=== PATIENT | female | born 1935 | race Caucasian/White ===

== ENCOUNTER → 2018-11-23 | Outpatient (CLI) | payer OTHER | END | disposition home or self-care (01) | LOC: NUCLEAR 11:00 | DX: I73.9 Peripheral vascular disease, unspecified (principal); I87.323 Chronic venous hypertension (idiopathic) with inflammation of bilateral lower extremity; I87.2 Venous insufficiency (chronic) (peripheral) ==

== ENCOUNTER → 2018-11-24 | Outpatient (CLI) | payer OTHER | END | disposition home or self-care (01) | LOC: NUCLEAR 11:48 | DX: I87.2 Venous insufficiency (chronic) (peripheral) (principal) ==

== ENCOUNTER 2019-08-03 09:04 | Outpatient (CLI) | payer OTHER | END 2019-08-03 17:00 | disposition home or self-care (01) | LOC: TOM 09:04 | DX: I35.8 Other nonrheumatic aortic valve disorders (principal); I48.91 Unspecified atrial fibrillation; Z79.02 Long term (current) use of antithrombotics/antiplatelets; I11.9 Hypertensive heart disease without heart failure; K57.32 Diverticulitis of large intestine without perforation or abscess without bleeding ==

== ENCOUNTER 2019-08-06 19:31 | Inpatient (IN) | payer OTHER ==
[~2019-08-06] VITALS: Ht 157.5 cm; Wt 59.9 kg
[2019-08-06] MEDS ORDERED: LANOXIN125 MCG (20:23)
[2019-08-06] MEDS ORDERED: COUMADIN5 MG (20:23)
[2019-08-06] MEDS ORDERED: LASIX20 MG (20:24)
[2019-08-06] MEDS ORDERED: HYDRALAZINE HCL50 MG (20:24)
[2019-08-06] MEDS ORDERED: QVAR REDIHALE10.6 G1 (20:24)
--- NOTE | 2019-08-06 20:26 | NUR ---
SE RECIBE PTE ALERTA YA ORIENTADA X 3 ESFERAS. REFIERE DIFICULTAD RESPIRATORIA, LA MISMA INDICA VENIR [facility], EN COMPANIA DE [place]. SE PRESENTA A DR DOOLEY Y SE UBICA EN AREA DE OBSERVACION.
[2019-09-02] MEDS ORDERED: LASIX20 MG PO (11:59)
[2019-09-02] MEDS ORDERED: HYDRALAZINE HCL50 MG PO (11:59)
[2019-09-02] MEDS ORDERED: LANOXIN125 MCG PO (12:20)
[2019-09-02] MEDS ORDERED: COUMADIN5 MG PO (12:20)
[2019-09-02] MEDS ORDERED: COUMADIN1 MG PO (12:20)
[2019-09-02] MEDS ORDERED: DILTIAZEM ER120 M2 PO (12:20)
== END 2019-09-02 12:58 | disposition home or self-care (01) | DRG 871 ==
LOC: ER 19:31 → MEDJ 20:31 → SURH 20:31 → SURG 20:31 → SEC-K 22:25 → SURH 08-07 00:09 → SURG 08-23 13:35
PROVIDERS: ADMIT Internal Medicine
PROC: BB24ZZZ Computerized Tomography (CT Scan) of Bilateral Lungs (ICD-10-PCS; 2019-08-06)
PROC: 3E0F7GC Introduction of Other Therapeutic Substance into Respiratory Tract, Via Natural or Artificial Opening (ICD-10-PCS; 2019-08-06)
PROC: 4A033R1 Measurement of Arterial Saturation, Peripheral, Percutaneous Approach (ICD-10-PCS; 2019-08-06)
PROC: B246ZZZ Ultrasonography of Right and Left Heart (ICD-10-PCS; 2019-08-07)
PROC: 4A12X4Z Monitoring of Cardiac Electrical Activity, External Approach (ICD-10-PCS; 2019-08-07)
PROC: BB4BZZZ Ultrasonography of Pleura (ICD-10-PCS; 2019-08-08)
PROC: 0W9B30Z Drainage of Left Pleural Cavity with Drainage Device, Percutaneous Approach (ICD-10-PCS; principal; 2019-08-09)
DX: A41.89 Other specified sepsis (principal); J18.1 Lobar pneumonia, unspecified organism; J90 Pleural effusion, not elsewhere classified; J98.11 Atelectasis; D68.318 Other hemorrhagic disorder due to intrinsic circulating anticoagulants, antibodies, or inhibitors; J94.2 Hemothorax; N17.8 Other acute kidney failure; E87.5 Hyperkalemia; I70.0 Atherosclerosis of aorta; I08.3 Combined rheumatic disorders of mitral, aortic and tricuspid valves; I48.0 Paroxysmal atrial fibrillation; I11.9 Hypertensive heart disease without heart failure; Z79.01 Long term (current) use of anticoagulants; Z95.2 Presence of prosthetic heart valve

== ENCOUNTER → 2019-09-19 | Outpatient (CLI) | payer OTHER ==
[~2019-09-19] MED LIST: COUMADIN1 MG PO; COUMADIN5 MG; COUMADIN5 MG PO; DILTIAZEM ER120 M2 PO; HYDRALAZINE HCL50 MG; HYDRALAZINE HCL50 MG PO; LANOXIN125 MCG; LANOXIN125 MCG PO; LASIX20 MG; LASIX20 MG PO; QVAR REDIHALE10.6 G1
== END | disposition home or self-care (01) ==
LOC: RAD 13:23
DX: I50.89 Other heart failure (principal)

== ENCOUNTER → 2019-12-21 | Outpatient (CLI) | payer OTHER | END | disposition home or self-care (01) | LOC: TOM 09:00 | DX: R06.02 Shortness of breath (principal); J84.112 Idiopathic pulmonary fibrosis; M25.562 Pain in left knee ==

== ENCOUNTER 2019-12-30 19:52 | Emergency (ER) | payer OTHER ==
[~2019-12-30] VITALS: Ht 149.9 cm; Wt 50.3 kg
[2019-12-30] MEDS ORDERED: FUSION PLUS CA1 EACH PO (20:04)
== END 2019-12-31 04:19 | disposition home or self-care (01) ==
LOC: ER 19:52
DX: R79.1 Abnormal coagulation profile (principal); Z79.01 Long term (current) use of anticoagulants

== ENCOUNTER 2020-07-05 15:53 | Outpatient (CLI) | payer OTHER ==
[~2020-07-05 15:53] MED LIST changes: +FUSION PLUS CA1 EACH PO
== END 2020-07-05 17:00 | disposition home or self-care (01) ==
LOC: RAD 15:53
PROVIDERS: ATTEND Internal Medicine Hematology & Oncology
DX: M89.8X8 Other specified disorders of bone, other site (principal); C90.02 Multiple myeloma in relapse

== ENCOUNTER 2020-08-06 17:05 | Outpatient (CLI) | payer OTHER | END 2020-08-06 17:10 | disposition home or self-care (01) | LOC: LAB 17:05 | PROVIDERS: ATTEND Internal Medicine Hematology & Oncology | DX: I20.0 Unstable angina (principal) ==

== ENCOUNTER → 2020-08-06 | Outpatient (CLI) | payer OTHER | END | disposition home or self-care (01) | LOC: RAD 16:07 | PROVIDERS: ATTEND Internal Medicine Hematology & Oncology | DX: I10 Essential (primary) hypertension (principal) ==

== ENCOUNTER → 2020-08-23 | Outpatient (CLI) | payer OTHER ==
[~2020-08-23] MED LIST changes: +DIGOXIN125 MCG PO; +PRADAXA75 MG PO
== END | disposition home or self-care (01) ==
LOC: RAD 10:34
PROVIDERS: ATTEND Internal Medicine Cardiovascular Disease
DX: I51.7 Cardiomegaly (principal); R07.89 Other chest pain

== ENCOUNTER 2020-08-24 09:05 | Outpatient (CLI) | payer OTHER ==
[~2020-08-24 09:05] MED LIST changes: -DIGOXIN125 MCG PO; -PRADAXA75 MG PO
[2020-08-24] MEDS ORDERED: DIGOXIN125 MCG PO (12:20)
[2020-08-24] MEDS ORDERED: PRADAXA75 MG PO (12:20)
== END 2020-08-24 09:09 | disposition home or self-care (01) ==
LOC: LAB 09:05
PROVIDERS: ATTEND Internal Medicine Hematology & Oncology
DX: C90.02 Multiple myeloma in relapse (principal); D51.0 Vitamin B12 deficiency anemia due to intrinsic factor deficiency

== ENCOUNTER 2020-08-24 12:06 | Inpatient (IN) | payer OTHER ==
[~2020-08-24] VITALS: Ht 149.9 cm; Wt 49.9 kg
[2020-08-24] MEDS ORDERED: PRADAXA75 MG PO (12:20)
[2020-08-24] MEDS ORDERED: DIGOXIN125 MCG PO (12:20)
== END 2020-09-01 13:42 | disposition home or self-care (01) | DRG 841 ==
LOC: ER 12:06 → SEC-K 16:12 → SURH 16:12
PROVIDERS: ADMIT Internal Medicine; ATTEND Internal Medicine
PROC: 8E0ZXY6 Isolation (ICD-10-PCS; 2020-08-24)
PROC: 3E0F7SF Introduction of Other Gas into Respiratory Tract, Via Natural or Artificial Opening (ICD-10-PCS; 2020-08-24)
PROC: 3E0F7GC Introduction of Other Therapeutic Substance into Respiratory Tract, Via Natural or Artificial Opening (ICD-10-PCS; 2020-08-24)
PROC: 30233N1 Transfusion of Nonautologous Red Blood Cells into Peripheral Vein, Percutaneous Approach (ICD-10-PCS; principal; 2020-08-25)
PROC: 4A033R1 Measurement of Arterial Saturation, Peripheral, Percutaneous Approach (ICD-10-PCS; 2020-08-26)
PROC: B24BZZZ Ultrasonography of Heart with Aorta (ICD-10-PCS; 2020-08-30)
DX: C90.00 Multiple myeloma not having achieved remission (principal); J45.901 Unspecified asthma with (acute) exacerbation; D63.0 Anemia in neoplastic disease; Z95.2 Presence of prosthetic heart valve; I50.9 Heart failure, unspecified; I11.0 Hypertensive heart disease with heart failure; Z20.828 Contact with and (suspected) exposure to other viral communicable diseases; I27.20 Pulmonary hypertension, unspecified

== ENCOUNTER 2020-11-01 11:44 | Outpatient (CLI) | payer OTHER ==
[~2020-11-01 11:44] MED LIST changes: +DIGOXIN125 MCG PO; +PRADAXA75 MG PO
== END 2020-11-01 13:18 | disposition home or self-care (01) ==
LOC: LAB 11:44
PROVIDERS: ATTEND Internal Medicine Hematology & Oncology
DX: D50.8 Other iron deficiency anemias (principal); R79.89 Other specified abnormal findings of blood chemistry; I10 Essential (primary) hypertension; R74.02 Elevation of levels of lactic acid dehydrogenase [LDH]; K76.89 Other specified diseases of liver; D47.2 Monoclonal gammopathy; C90.00 Multiple myeloma not having achieved remission; I35.0 Nonrheumatic aortic (valve) stenosis

== ENCOUNTER 2020-12-17 13:09 | Outpatient (CLI) | payer OTHER | END 2020-12-17 13:19 | disposition home or self-care (01) | LOC: LAB 13:09 | PROVIDERS: ATTEND Internal Medicine Hematology & Oncology | DX: D50.8 Other iron deficiency anemias (principal); R79.89 Other specified abnormal findings of blood chemistry; I10 Essential (primary) hypertension; R74.02 Elevation of levels of lactic acid dehydrogenase [LDH]; K76.89 Other specified diseases of liver; C90.00 Multiple myeloma not having achieved remission; I35.0 Nonrheumatic aortic (valve) stenosis ==

== ENCOUNTER 2020-12-21 16:39 | Outpatient (CLI) | payer OTHER | END 2020-12-21 18:00 | disposition home or self-care (01) | LOC: LAB 16:39 | DX: D50.8 Other iron deficiency anemias (principal) ==

== ENCOUNTER 2021-01-16 10:50 | Outpatient (CLI) | payer OTHER | END 2021-01-16 16:11 | disposition home or self-care (01) | LOC: LAB 10:50 | PROVIDERS: ATTEND Internal Medicine Hematology & Oncology | DX: C90.00 Multiple myeloma not having achieved remission (principal); I10 Essential (primary) hypertension; D50.8 Other iron deficiency anemias; I35.0 Nonrheumatic aortic (valve) stenosis; R79.89 Other specified abnormal findings of blood chemistry; R74.02 Elevation of levels of lactic acid dehydrogenase [LDH]; K76.89 Other specified diseases of liver ==

== ENCOUNTER → 2021-03-28 11:18 | Outpatient (CLI) | payer OTHER | END | disposition home or self-care (01) | LOC: LAB 11:18 | PROVIDERS: ATTEND Internal Medicine Hematology & Oncology | DX: D50.8 Other iron deficiency anemias (principal); I10 Essential (primary) hypertension; R74.02 Elevation of levels of lactic acid dehydrogenase [LDH]; K76.89 Other specified diseases of liver; D47.2 Monoclonal gammopathy; C90.00 Multiple myeloma not having achieved remission; D63.0 Anemia in neoplastic disease; D63.1 Anemia in chronic kidney disease; I35.0 Nonrheumatic aortic (valve) stenosis ==

== ENCOUNTER 2021-12-27 06:27 | Emergency (ER) | payer OTHER ==
[~2021-12-27] VITALS: Ht 149.9 cm; Wt 49.9 kg
[2021-12-27] MEDS ORDERED: REVLIMID2.5 MG (06:44)
[2021-12-27] MEDS ORDERED: DECADRON6 MG PO (06:45)
[2021-12-27] MEDS ORDERED: INTEGRA F CAPS1 EACH (06:46)
[2021-12-27] MEDS ORDERED: [UNRECOGNIZED DRUG - OTHER] (06:46)
== END 2021-12-27 15:16 | disposition home or self-care (01) ==
LOC: ER 06:27 → EDBD 07:29 → ER 07:29
DX: K59.00 Constipation, unspecified (principal); K57.30 Diverticulosis of large intestine without perforation or abscess without bleeding; K44.9 Diaphragmatic hernia without obstruction or gangrene

== ENCOUNTER 2021-12-29 08:41 | Emergency (ER) | payer OTHER ==
[~2021-12-29] VITALS: Ht 149.9 cm; Wt 47.6 kg
[~2021-12-29 08:41] MED LIST changes: +DECADRON6 MG PO; +INTEGRA F CAPS1 EACH; +REVLIMID2.5 MG; +[UNRECOGNIZED DRUG - OTHER]
== END 2021-12-29 16:23 | disposition home or self-care (01) ==
LOC: ER 08:41
DX: E86.0 Dehydration (principal); C90.00 Multiple myeloma not having achieved remission; M62.50 Muscle wasting and atrophy, not elsewhere classified, unspecified site; Z20.822 Contact with and (suspected) exposure to COVID-19

== ENCOUNTER 2022-01-01 10:38 | Outpatient (CLI) | payer OTHER | END 2022-01-01 11:00 | disposition home or self-care (01) | LOC: TOM 10:38 | PROVIDERS: ATTEND Internal Medicine Gastroenterology | DX: R05.9 Cough, unspecified (principal); R07.9 Chest pain, unspecified; C90.00 Multiple myeloma not having achieved remission | CPT/HCPCS: 71270; Q9965 ==

== ENCOUNTER 2022-01-08 13:19 | Outpatient (CLI) | payer OTHER | END 2022-01-08 13:43 | disposition home or self-care (01) | LOC: LAB 13:19 | DX: D47.2 Monoclonal gammopathy (principal); I10 Essential (primary) hypertension; N39.0 Urinary tract infection, site not specified; E11.9 Type 2 diabetes mellitus without complications ==

== ENCOUNTER 2022-01-20 06:13 | Outpatient (CLI) | payer OTHER | END 2022-01-20 06:16 | disposition home or self-care (01) | LOC: LAB 06:13 | PROVIDERS: ATTEND Radiology Diagnostic Radiology | DX: M46.40 Discitis, unspecified, site unspecified (principal) ==

== ENCOUNTER 2022-01-29 07:59 | Outpatient (CLI) | payer OTHER | END 2022-01-29 08:04 | disposition home or self-care (01) | LOC: LAB 07:59 | PROVIDERS: ATTEND Internal Medicine Hematology & Oncology | DX: D50.8 Other iron deficiency anemias (principal); R74.02 Elevation of levels of lactic acid dehydrogenase [LDH]; K76.89 Other specified diseases of liver; D47.2 Monoclonal gammopathy; C90.00 Multiple myeloma not having achieved remission; D63.0 Anemia in neoplastic disease; D63.1 Anemia in chronic kidney disease; N18.4 Chronic kidney disease, stage 4 (severe); I35.0 Nonrheumatic aortic (valve) stenosis ==

== ENCOUNTER 2022-02-26 06:35 | Outpatient (CLI) | payer OTHER | END 2022-02-26 07:00 | disposition home or self-care (01) | LOC: MRI 06:35 | DX: K76.5 Hepatic veno-occlusive disease (principal) | CPT/HCPCS: 72146; 72148 ==

== ENCOUNTER 2022-05-01 15:54 | Inpatient (IN) | payer OTHER ==
[~2022-05-01] VITALS: Ht 121.9 cm; Wt 45.4 kg
--- NOTE | 2022-05-01 16:14 | NUR ---
SE RECIBE PTE ALERTA Y ORIENTADA X3,REFIERE FAMILIAR QUE TIENE LA HEMOGLOBINA EN 8.70 ,ES DEPENDIENTE DE OXIGENO 1.5,PTE DE MICK GRIFFIN.
--- NOTE | 2022-05-01 16:50 | NUR ---
SE EDCUA A PTE SOOBRE [place] MEDICO ESTA REFIERE ETNENDER.S E GEE MUESTRAS D ELABORATORIO UTILZIANDO MEDDIASA SEPTICAS. SE COLOCA H/L A PTE Y SE MANEJAN ORDENES DE ADMISION.
== END 2022-05-17 11:46 | disposition home or self-care (01) | DRG 840 ==
LOC: ER 15:54 → MEDJ 16:22 → SEC-K 16:22 → ER 16:22 → MEDJ 18:24
PROVIDERS: ADMIT Specialist; ATTEND Specialist
PROC: 3E0F7SF Introduction of Other Gas into Respiratory Tract, Via Natural or Artificial Opening (ICD-10-PCS; 2022-05-01)
PROC: 30233N1 Transfusion of Nonautologous Red Blood Cells into Peripheral Vein, Percutaneous Approach (ICD-10-PCS; principal; 2022-05-02)
PROC: 4A12X45 Monitoring of Cardiac Electrical Activity, Ambulatory, External Approach (ICD-10-PCS; 2022-05-09)
PROC: 02HV33Z Insertion of Infusion Device into Superior Vena Cava, Percutaneous Approach (ICD-10-PCS; 2022-05-10)
DX: C90.00 Multiple myeloma not having achieved remission (principal); J69.0 Pneumonitis due to inhalation of food and vomit; G92.9 Unspecified toxic encephalopathy; G93.40 Encephalopathy, unspecified; N17.9 Acute kidney failure, unspecified; D63.0 Anemia in neoplastic disease; D63.8 Anemia in other chronic diseases classified elsewhere; L89.152 Pressure ulcer of sacral region, stage 2; R13.19 Other dysphagia; G30.9 Alzheimer's disease, unspecified; F02.80 Dementia in other diseases classified elsewhere, unspecified severity, without behavioral disturbance, psychotic disturbance, mood disturbance, and anxiety; M62.59 Muscle wasting and atrophy, not elsewhere classified, multiple sites; I11.0 Hypertensive heart disease with heart failure; I50.9 Heart failure, unspecified; I48.91 Unspecified atrial fibrillation; I27.20 Pulmonary hypertension, unspecified; Z79.01 Long term (current) use of anticoagulants; Z95.2 Presence of prosthetic heart valve
CPT/HCPCS: 70553